=== PATIENT | female | born 1965 | race Caucasian/White ===

== ENCOUNTER 2017-05-07 17:13 | Emergency (ER) | payer MEDICAID ==
[2017-05-07 18:35] VITALS: BP 116/72
== END 2017-05-07 18:35 | disposition home or self-care (01) ==
LOC: ED 17:13
DX: R20.0 Anesthesia of skin (principal)
CPT/HCPCS: 82962

== ENCOUNTER 2019-10-31 18:14 | Emergency (ER) | payer MEDICAID ==
[~2019-10-31] VITALS: Ht 162.6 cm; Wt 88.0 kg
[2019-10-31 18:46] VITALS: Ht 162.6 cm; Wt 88.0 kg
[2019-10-31 19:38] LABS: BASOPHIL % 0.4 % (0-2); PLATELET COUNT 249 x10^3mcL (130-400); RED CELL DISTRIBUTION WIDTH 13.7 % (11.5-14.5)
[2019-10-31 19:52] LABS: CALCIUM 9.1 mg/dL (8.5-10.1); CARBON DIOXIDE 27.9 mmol/L (21-32); CHLORIDE SERUM 104 mmol/L (98-107); GFR1 > 60 mL/min; GLUCOSE SERUM 105 mg/dL (74-106); POTASSIUM SERUM 3.9 mmol/L (3.5-5.1); SODIUM SERUM 136 mmol/L (136-145)
[2019-10-31 19:54] LABS: microscopic required? YES; urine erythrocyte NEGATIVE (NEGATIVE)
[2019-10-31 19:57] LABS: ALBUMIN 3.5 g/dL (3.4-5.0); ALKALINE PHOSPHATASE 88 U/L (46-116); ALT/SGPT 64 U/L (14-59); AST/SGOT 37 U/L (15-37); BILIRUBIN TOTAL 0.4 mg/dL (0.20-1.00); TOTAL PROTEIN, SERUM 7.2 g/dL (6.4-8.2)
[2019-10-31 23:04] VITALS: BP 94/55
== END 2019-10-31 23:04 | disposition home or self-care (01) ==
LOC: ED 18:14
PROVIDERS: Emergency Medicine
DX: R53.1 Weakness (principal); R06.00 Dyspnea, unspecified; R42 Dizziness and giddiness; R51 Headache; R22.31 Localized swelling, mass and lump, right upper limb; R22.32 Localized swelling, mass and lump, left upper limb
CPT/HCPCS: 36415; 83880; 85378; Q0092